=== PATIENT | female | born 1940 | race Caucasian/White ===

== ENCOUNTER 2017-01-16 09:37 | Inpatient (IN) | payer MEDICARE, OTHER ==
[~2017-01-16] VITALS: Ht 162.5 cm; Wt 61.0 kg
[2017-01-16] VITALS (7 sets, daily range): BP systolic 97–172; BP diastolic 54–98
--- NOTE | ~2017-01-16 | CON ---
[place], [place] REPORT OF CONSULTATION NAME: AMAYA ROSEN UNIT #: [id number] ROOM: 507 DOCTOR: SIMON PAT MD BIRTHDATE: [birth year] DOS: 01/16/2017 REASON FOR CONSULTATION: Atrial flutter. HISTORY OF PRESENT ILLNESS: The patient is a 76-year-old woman who was seen at her bedside today, 01/16/2017, for evaluation of atrial flutter. She has no previous history of heart disease, although she does have hypertension. She states that for the last month and a half, she has had episodic flutters in her chest. She states that her heart beats fast for several hours and then returns to normal again. She awakened at 5:00 this morning with similar symptoms and felt breathless and fatigued. She therefore came to the Emergency Room where she was found to be in atrial flutter with a heart rate response of 130. She was placed on a diltiazem drip and spontaneously converted to sinus rhythm. She was admitted to the hospital. We were asked to see her. The patient now feels well. PAST MEDICAL HISTORY: Includes: 1. Hypertension. 2. History of bilateral cataract resections. 3. Status post right breast lumpectomy. 4. No previous history of heart attack, stroke or peripheral vascular disease. 5. History of FOOD allergies with swelling of the face and mucous membranes. The patient is on allergy shots and has been told that she cannot take BETA BLOCKERS because of this. REVIEW OF SYSTEMS: The patient denies diplopia or loss of vision. She denies focal weakness. She denies lightheadedness or syncope. She denies orthopnea or PND. She denies fevers, chills, sweats or recent weight change. She has had palpitations as noted. She denies hemoptysis or hematemesis. She denies change in bowel or bladder habits and denies blood in her stools or urine. She denies heat or cold intolerance. She denies polydipsia or polyuria. She denies any peripheral edema. She denies any skin rashes. Remainder of the review of systems is negative except as noted above. FAMILY HISTORY: Sister of heart valve problems and probable heart failure. Her father at age 80 of dementia. Her mother at age 72 of a myocardial infarction. Many family members on her mother's side had heart disease. SOCIAL HISTORY: The patient is . She does not smoke or consume alcohol. MEDICATIONS: Prior to admission included cetirizine 10 mg daily, lisinopril 5 mg daily and ranitidine 150 mg b.i.d. ALLERGIES: She has no known drug allergies, but is told that she cannot take BETA BLOCKERS because of her allergy shots. PHYSICAL EXAMINATION: GENERAL: Reveals a well-nourished white female who is awake, alert and oriented. [place], [place] REPORT OF CONSULTATION NAME: AMAYA ROSEN UNIT #: [id number] ROOM: 507 DOCTOR: SIMON PAT MD BIRTHDATE: [birth year] VITAL SIGNS: Pulse is 74 and regular, blood pressure is 151/63. She is afebrile. She weighs 61 kg and has a body mass index of 23.1. HEENT: Normocephalic and atraumatic. Extraocular muscles are intact. Sclerae are clear. Pupils equal, round and react to light. The oral mucosa is moist. Tongue is midline. NECK: Supple. She has no jugular distention. Carotids are full. I heard no bruits. She had no neck or supraclavicular masses and no thyromegaly. LUNGS: Respirations are unlabored. Her chest is clear to auscultation and percussion. She had no presacral edema or chest wall tenderness. HEART: Had a regular rhythm. She had a fourth heart sound, but no third heart sound or murmurs. The PMI was not displaced. There was no precordial heave, lift or thrill. ABDOMEN: Soft and normally active without masses, organomegaly or bruits. EXTREMITIES: Showed no clubbing, cyanosis or edema. Peripheral pulses were easily palpated bilaterally. LABORATORY DATA: I did review her electrocardiograms. They showed atrial flutter with 2:1 block on admission. She then converted to sinus rhythm with poor precordial R-wave progression and a left anterior fascicular block. IMPRESSIONS: 1. Newly documented atrial flutter. The patient has had symptoms of this for at least 1-2 months. 2. History of hypertension. 3. History of FOOD allergies, for which she is on allergy shots. 4. CHADS-VASc score of 4 indicating a high risk for future embolic phenomena without anticoagulation. PLAN: We will review the echocardiogram when it is available. TSH has also been ordered and we will review that when it is available. We will place her on oral diltiazem to slow her heart rate if and when she goes back into atrial flutter or fibrillation. For now, I would withhold antiarrhythmic drugs. She does have a high risk for stroke; however, so we will start her on a direct oral anticoagulant (rivaroxaban) and observe her in the hospital. She probably could be discharged to home in the next 24 hours if she remains stable and tolerates her medications. [facility] and I thank the hospitalist physicians for asking our advice regarding this patient's care. [place], [place] REPORT OF CONSULTATION NAME: AMAYA ROSEN UNIT #: [id number] ROOM: 507 DOCTOR: SIMON PAT MD BIRTHDATE: [birth year] SIMON PAT MD CM:CONSTR:REPORT OF CONSULTATION 1616 01/16/17 1741 interface
[~2017-01-16 09:37] MED LIST: TRAMADOL HCL50 MG PO
[2017-01-16 10:07] LABS: BASO # 0.1 10*3/uL (0.0-0.1); BASO % 0.8 % (0.0-1.0); EOS # 0.2 10*3/uL (0.0-0.4); EOS % 2.9 % (1.0-4.0); HEMATOCRIT 43.1 % (37.0-47.0); HEMOGLOBIN 14.1 g/dl (12.0-16.0); LYMPH # 1.8 10*3/uL (1.3-4.4); LYMPH % 22.7 % (27.0-41.0); MEAN CELL VOLUME 95.8 fl (81.0-99.0); MEAN CORPUSCULAR HGB 31.3 pg (27.0-31.0); MEAN CORPUSCULAR HGB CONC 32.7 g/dl (33.0-37.0); MEAN PLATELET VOLUME 10.4 fl (9.6-12.3); MONO # 0.7 10*3/uL (0.1-1.0); MONO % 9.1 % (3.0-9.0); NEUT # 5.1 10*3/uL (2.3-7.9); NEUT % 64.2 % (47.0-73.0); PLATELET COUNT AUTOMATED 263 10*3/uL (130-400); RED CELL DISTRI WIDTH 12.5 % (0-14.5); WHITE BLOOD COUNT 7.9 10*3/uL (4.8-10.8)
[2017-01-16 10:17] LABS: ACT PARTIAL THROMBO TIME 25.9 SECONDS (20.8-31.5)
[2017-01-16 10:25] LABS: ALBUMIN 3.9 gm/dl (3.1-4.5); ALKALINE PHOSPHATASE 95 U/L (45-117); BUN 17 mg/dl (7-24); CHLORIDE 109 mmol/L (98-107); POTASSIUM 3.4 mmol/L (3.5-5.1); SGOT/AST 26 IU/L (3-35); SGPT/ALT 21 U/L (12-78); SODIUM 143 mmol/L (136-145); TOTAL PROTEIN 8.2 gm/dL (6.4-8.2)
[2017-01-16 10:32] LABS: TROPONIN I < 0.015 ng/ml (<0.045)
[2017-01-16 10:48] LABS: THYROID STIM HORMONE (HS) 0.453 uIU/ml (0.358-4.75)
[2017-01-16] MEDS ORDERED: LISINOPRIL5 MG PO (10:48)
[2017-01-16] MEDS ORDERED: ZANTAC 150150 MG PO (10:48)
[2017-01-16] MEDS ORDERED: ZYRTEC10 MG PO (10:48)
--- NOTE | 2017-01-16 10:48 | NUR ---
A 76, admitted to 5E, under the services of SAMRA Carrillo DO with a diagnosis of A FLUTTER. Chief complaint is RAPID HEART RATE- PALPITATIONS. Patient arrived via stretcher from ER. Monitor applied. Initial assessment completed. Vital signs taken and recorded. SAMRA CARRILLO DO notified of admission to the unit. Orders received. See assessment for past medical history, medications and allergies. Patient and/or family oriented to unit. [address] visitation policy reviewed. Clothing/patient valuable form completed. LASHAY GOMEZ
--- NOTE | 2017-01-16 10:49 | NUR ---
MEDS VERIFIED WITH [facility]
--- NOTE | 2017-01-16 11:20 | NUR ---
PT HR IN MID 60'S TO LOW 70'S. DR KHALIL NOTFIIED. ORDERS RECEIVED TO STOP CARDIZEM.
--- NOTE | 2017-01-16 13:03 | NUR ---
CONSULT CALLED TO DR CORMIER ANSWERING SERVICE
--- NOTE | 2017-01-16 13:06 | NUR ---
DR CORMIER RETURNS CALL AND ASKED THIS NURSE TO CALL DR PAT HE IS IN HOUSE TODAY, DR PAT NOTIFIED OF CONSULT.
--- NOTE | 2017-01-16 15:51 | NUR ---
DR PAT ON FLOOR AND SEES PT.
--- NOTE | 2017-01-16 15:52 | NUR ---
Patient resting quietly with no c/o discomfort. Respirations easy and regular. Vital signs stable. No overt distress. LASHAY GOMEZ R
[2017-01-17] VITALS: BP 142/84; BP 162/73
[2017-01-17 06:30] LABS: BASO # 0.1 10*3/uL (0.0-0.1); EOS # 0.3 10*3/uL (0.0-0.4); EOS % 4.7 % (1.0-4.0); HEMOGLOBIN 12.3 g/dl (12.0-16.0); LYMPH # 2.7 10*3/uL (1.3-4.4); LYMPH % 38.1 % (27.0-41.0); MEAN CELL VOLUME 95.7 fl (81.0-99.0); MEAN CORPUSCULAR HGB CONC 32.4 g/dl (33.0-37.0); MEAN PLATELET VOLUME 11.2 fl (9.6-12.3); MONO # 0.8 10*3/uL (0.1-1.0); MONO % 11.5 % (3.0-9.0); NEUT # 3.1 10*3/uL (2.3-7.9); NEUT % 44.3 % (47.0-73.0); PLATELET COUNT AUTOMATED 223 10*3/uL (130-400); RED BLOOD COUNT 3.97 10*6/uL (4.10-5.10); RED CELL DISTRI WIDTH 12.5 % (0-14.5)
[2017-01-17 06:43] LABS: INTERNATIONAL NORM RATIO 1.3 (2.0-3.5)
[2017-01-17 06:45] LABS: ALBUMIN 3.2 gm/dl (3.1-4.5); BUN 13 mg/dl (7-24); CHLORIDE 109 mmol/L (98-107); CHOLESTEROL 174 mg/dL (<200); CREATININE 0.84 mg/dL (0.55-1.02); PHOSPHOROUS 3.1 mg/dL (2.5-4.9); POTASSIUM 4.3 mmol/L (3.5-5.1); SGOT/AST 20 IU/L (3-35); SGPT/ALT 13 U/L (12-78); SODIUM 144 mmol/L (136-145); TRIGLYCERIDES 78 mg/dl (<150); VLDL CHOLESTEROL 16 mg/dL (6-40)
[2017-01-17 06:52] LABS: ALKALINE PHOSPHATASE 79 U/L (45-117); HDL CHOLESTEROL 69 mg/dl (40-60); LDL CHOLESTEROL 89 mg/dL (9-159); THYROID STIM HORMONE (HS) 0.831 uIU/ml (0.358-4.75); TOTAL PROTEIN 6.8 gm/dL (6.4-8.2)
[2017-01-17 07:15] LABS: VITAMIN D, 25-HYDROXY 38.1 ng/mL (30-100)
[2017-01-17 08:00] VITALS: BP 152/64
[2017-01-17 12:00] VITALS: BP 128/70
[2017-01-17] MEDS ORDERED: XARE20MG PO (12:11)
[2017-01-17] MEDS ORDERED: DILTIAZEM 24HR120 MG PO (12:11)
--- NOTE | 2017-01-17 13:02 | NUR ---
Discharge instructions reviewed with patient/family. Patient receptive and verbalizes understanding. Follow-up care arranged. Written instructions given to patient/family. ODALYS OLIVEIRA
== END 2017-01-17 13:02 | disposition home or self-care (01) | DRG 309 ==
LOC: ED 09:37 → EDHOLD 09:59 → 5E 10:02
PROVIDERS: Emergency Medicine; Hospitalist; ADMIT Internal Medicine
DX: I48.92 Unspecified atrial flutter (principal); D68.59 Other primary thrombophilia; E87.6 Hypokalemia; I10 Essential (primary) hypertension; Z98.42 Cataract extraction status, left eye; Z98.41 Cataract extraction status, right eye; Z82.49 Family history of ischemic heart disease and other diseases of the circulatory system; Z81.8 Family history of other mental and behavioral disorders; Z79.899 Other long term (current) drug therapy; Z88.8 Allergy status to other drugs, medicaments and biological substances

== ENCOUNTER → 2018-07-27 | Outpatient (CLI) | payer MEDICARE, OTHER ==
[~2018-07-27] MED LIST changes: +DILTIAZEM 24HR120 MG PO; +LISINOPRIL5 MG PO; +XARE20MG PO; +ZANTAC 150150 MG PO; +ZYRTEC10 MG PO
[2018-07-27 08:31] LABS: CREATININE 0.82 mg/dL (0.55-1.02)
== END | disposition home or self-care (01) ==
LOC: LAB 07:36
PROVIDERS: Surgery
DX: K59.00 Constipation, unspecified (principal)

== ENCOUNTER → 2018-11-10 | Outpatient (CLI) | payer MEDICARE, OTHER ==
[2018-11-10 09:12] LABS: BASO # 0.1 10*3/uL (0.0-0.1); BASO % 0.9 % (0.0-1.0); EOS # 0.3 10*3/uL (0.0-0.4); EOS % 4.4 % (1.0-4.0); HEMATOCRIT 41.1 % (37.0-47.0); LYMPH # 2.1 10*3/uL (1.3-4.4); LYMPH % 30.7 % (27.0-41.0); MEAN CELL VOLUME 99.5 fl (81.0-99.0); MEAN CORPUSCULAR HGB 31.5 pg (27.0-31.0); MEAN CORPUSCULAR HGB CONC 31.6 g/dl (33.0-37.0); MEAN PLATELET VOLUME 10.9 fl (9.6-12.3); MONO # 0.7 10*3/uL (0.1-1.0); MONO % 9.9 % (3.0-9.0); NEUT # 3.7 10*3/uL (2.3-7.9); NEUT % 53.7 % (47.0-73.0); PLATELET COUNT AUTOMATED 246 10*3/uL (130-400); RED BLOOD COUNT 4.13 10*6/uL (4.10-5.10); RED CELL DISTRI WIDTH 12.7 % (0-14.5); WHITE BLOOD COUNT 6.8 10*3/uL (4.8-10.8)
[2018-11-10 09:31] LABS: ALBUMIN 3.9 gm/dl (3.1-4.5); ALKALINE PHOSPHATASE 102 U/L (45-117); BUN 22 mg/dl (7-24); CHLORIDE 108 mmol/L (98-107); CHOLESTEROL 175 mg/dL (<200); CREATININE 0.79 mg/dL (0.55-1.02); FREE T4 1.21 ng/dl (0.76-1.46); HDL CHOLESTEROL 80 mg/dl (40-60); LDL CHOLESTEROL 87 mg/dL (9-159); POTASSIUM 4.3 mmol/L (3.5-5.1); SGOT/AST 19 IU/L (3-35); SGPT/ALT 18 U/L (12-78); SODIUM 141 mmol/L (136-145); TOTAL PROTEIN 7.7 gm/dL (6.4-8.2); TRIGLYCERIDES 42 mg/dl (<150); VLDL CHOLESTEROL 8 mg/dL (6-40)
[2018-11-10 09:37] LABS: THYROID STIM HORMONE (HS) 0.405 uIU/ml (0.358-4.75)
[2018-11-10 09:52] LABS: VITAMIN D, 25-HYDROXY 47.4 ng/mL (30-100)
== END | disposition home or self-care (01) ==
LOC: LAB 08:14
PROVIDERS: Internal Medicine
DX: I10 Essential (primary) hypertension (principal); E55.9 Vitamin D deficiency, unspecified; D52.9 Folate deficiency anemia, unspecified; D51.9 Vitamin B12 deficiency anemia, unspecified

== ENCOUNTER → 2019-03-02 | Day surgery (SDC) | payer MEDICARE, OTHER ==
[~2019-03-02] VITALS: Ht 162.5 cm; Wt 59.0 kg
[~2019-03-02] MED LIST changes: +FOLGARD TABLET1 EACH PO
[2019-03-02 09:42] VITALS: BP 127/84
[2019-03-02 10:55] VITALS: BP 128/46
[2019-03-02 11:10] VITALS: BP 159/58
[2019-03-02 11:25] VITALS: BP 159/57
== END | disposition home or self-care (01) ==
LOC: SDC 02-28 13:15
DX: K59.00 Constipation, unspecified (principal); I10 Essential (primary) hypertension; I48.91 Unspecified atrial fibrillation; K57.30 Diverticulosis of large intestine without perforation or abscess without bleeding; Z98.890 Other specified postprocedural states; Z79.899 Other long term (current) drug therapy

== ENCOUNTER → 2019-08-22 | Outpatient (CLI) | payer MEDICARE, OTHER | END | disposition home or self-care (01) | LOC: RAD 07:29 | DX: M81.0 Age-related osteoporosis without current pathological fracture (principal) ==

== ENCOUNTER → 2019-11-03 | Outpatient (CLI) | payer MEDICARE, OTHER ==
[2019-11-03 08:30] LABS: BASO % 0.6 % (0.0-1.0); EOS # 0.3 10*3/uL (0.0-0.4); EOS % 3.9 % (1.0-4.0); HEMATOCRIT 43.9 % (37.0-47.0); LYMPH # 2.8 10*3/uL (1.3-4.4); LYMPH % 39.6 % (27.0-41.0); MEAN CELL VOLUME 97.8 fl (81.0-99.0); MEAN CORPUSCULAR HGB CONC 31.7 g/dl (33.0-37.0); MEAN PLATELET VOLUME 11.2 fl (9.6-12.3); MONO # 0.8 10*3/uL (0.1-1.0); MONO % 10.8 % (3.0-9.0); NEUT # 3.1 10*3/uL (2.3-7.9); NEUT % 44.8 % (47.0-73.0); PLATELET COUNT AUTOMATED 224 10*3/uL (130-400); RED BLOOD COUNT 4.49 10*6/uL (4.10-5.10); RED CELL DISTRI WIDTH 12.6 % (0-14.5); WHITE BLOOD COUNT 6.9 10*3/uL (4.8-10.8)
[2019-11-03 08:54] LABS: ALBUMIN 3.8 gm/dl (3.1-4.5); BUN 17 mg/dl (7-24); CHLORIDE 109 mmol/L (98-107); POTASSIUM 4.4 mmol/L (3.5-5.1); SODIUM 141 mmol/L (136-145)
[2019-11-03 09:04] LABS: ALKALINE PHOSPHATASE 97 U/L (45-117); CHOLESTEROL 195 mg/dL (<200); CREATININE 0.73 mg/dL (0.55-1.02); FREE T4 1.11 ng/dl (0.76-1.46); HDL CHOLESTEROL 86 mg/dl (40-60); LDL CHOLESTEROL 98 mg/dL (9-159); SGOT/AST 20 IU/L (3-35); SGPT/ALT 22 U/L (12-78); THYROID STIM HORMONE (HS) 0.943 uIU/ml (0.358-4.75); TOTAL PROTEIN 8.1 gm/dL (6.4-8.2); TRIGLYCERIDES 54 mg/dl (<150); VLDL CHOLESTEROL 11 mg/dL (6-40)
[2019-11-03 09:26] LABS: VITAMIN D, 25-HYDROXY 56.5 ng/mL (30-100)
== END | disposition home or self-care (01) ==
LOC: LAB 07:08
PROVIDERS: Internal Medicine; ATTEND Internal Medicine Cardiovascular Disease
DX: E55.9 Vitamin D deficiency, unspecified (principal); R70.0 Elevated erythrocyte sedimentation rate; R79.82 Elevated C-reactive protein (CRP); R74.8 Abnormal levels of other serum enzymes; R79.89 Other specified abnormal findings of blood chemistry; M06.9 Rheumatoid arthritis, unspecified; R53.81 Other malaise; E78.5 Hyperlipidemia, unspecified

== ENCOUNTER → 2019-12-13 | Outpatient (CLI) | payer MEDICARE, OTHER | END | disposition home or self-care (01) | LOC: CARD 14:38 | PROVIDERS: ATTEND Internal Medicine | DX: R06.02 Shortness of breath (principal) ==

== ENCOUNTER → 2020-04-25 | Outpatient (CLI) | payer MEDICARE, OTHER ==
[2020-04-25 09:02] LABS: CHOLESTEROL 171 mg/dL (<200); TRIGLYCERIDES 65 mg/dl (<150); VLDL CHOLESTEROL 13 mg/dL (6-40)
[2020-04-25 09:05] LABS: HDL CHOLESTEROL 83 mg/dl (40-60); LDL CHOLESTEROL 75 mg/dL (9-159)
== END | disposition home or self-care (01) ==
LOC: LAB 07:57
PROVIDERS: ATTEND Internal Medicine Cardiovascular Disease
DX: E78.5 Hyperlipidemia, unspecified (principal)

== ENCOUNTER → 2020-05-10 | Outpatient (CLI) | payer MEDICARE, OTHER | END | disposition home or self-care (01) | LOC: US 09:16 | PROVIDERS: ATTEND Internal Medicine | DX: K40.90 Unilateral inguinal hernia, without obstruction or gangrene, not specified as recurrent (principal) ==

== ENCOUNTER → 2021-05-08 | Outpatient (CLI) | payer MEDICARE, OTHER ==
[2021-05-08 08:47] LABS: BASO # 0.1 10*3/uL (0.0-0.1); BASO % 0.7 % (0.0-1.0); EOS # 0.2 10*3/uL (0.0-0.4); EOS % 2.9 % (1.0-4.0); LYMPH # 2.3 10*3/uL (1.3-4.4); LYMPH % 33.1 % (27.0-41.0); MEAN CORPUSCULAR HGB 31.1 pg (27.0-31.0); MEAN CORPUSCULAR HGB CONC 32.4 g/dl (33.0-37.0); MEAN PLATELET VOLUME 10.8 fl (9.6-12.3); MONO # 0.8 10*3/uL (0.1-1.0); MONO % 11.9 % (3.0-9.0); NEUT # 3.5 10*3/uL (2.3-7.9); NEUT % 51.1 % (47.0-73.0); PLATELET COUNT AUTOMATED 246 10*3/uL (130-400); RED BLOOD COUNT 4.27 10*6/uL (4.10-5.10); RED CELL DISTRI WIDTH 12.3 % (0-14.5); WHITE BLOOD COUNT 6.9 10*3/uL (4.8-10.8)
[2021-05-08 09:08] LABS: BUN 19 mg/dl (7-24); CHLORIDE 110 mmol/L (98-107); POTASSIUM 3.7 mmol/L (3.5-5.1); SODIUM 140 mmol/L (136-145)
[2021-05-08 09:17] LABS: ALKALINE PHOSPHATASE 107 U/L (45-117); CHOLESTEROL 175 mg/dL (<200); CREATININE 0.72 mg/dL (0.55-1.02); LDL CHOLESTEROL 72 mg/dL (9-159); SGOT/AST 23 IU/L (3-35); SGPT/ALT 23 U/L (12-78); T3 UPTAKE 34 % (31-39); THYROID STIM HORMONE (HS) 0.748 uIU/ml (0.358-4.75); THYROXINE (T4) TOTAL 9.9 ug/dl (4.8-13.9); TOTAL PROTEIN 8.2 gm/dL (6.4-8.2); TRIGLYCERIDES 58 mg/dl (<150)
[2021-05-08 09:42] LABS: VITAMIN D, 25-HYDROXY 60.7 ng/mL (30-100)
== END | disposition home or self-care (01) ==
LOC: LAB 08:19
PROVIDERS: ATTEND Internal Medicine
DX: I10 Essential (primary) hypertension (principal); Z00.00 Encounter for general adult medical examination without abnormal findings; Z13.89 Encounter for screening for other disorder; D64.9 Anemia, unspecified; E55.9 Vitamin D deficiency, unspecified; I48.21 Permanent atrial fibrillation

== ENCOUNTER → 2022-01-01 | Outpatient (CLI) | payer MEDICARE, OTHER | END | disposition home or self-care (01) | LOC: CT 08:00 | PROVIDERS: ATTEND Internal Medicine | DX: R10.2 Pelvic and perineal pain (principal); R10.30 Lower abdominal pain, unspecified; M99.84 Other biomechanical lesions of sacral region ==

== ENCOUNTER → 2022-10-14 | Outpatient (CLI) | payer MEDICARE, OTHER ==
[2022-10-14 09:38] LABS: BASO # 0.1 10*3/uL (0.0-0.1); BASO % 1.2 % (0.0-1.0); EOS # 0.3 10*3/uL (0.0-0.4); EOS % 4.6 % (1.0-4.0); HEMATOCRIT 44.6 % (37.0-47.0); LYMPH % 29.3 % (27.0-41.0); MEAN CORPUSCULAR HGB 31.3 pg (27.0-31.0); MEAN CORPUSCULAR HGB CONC 32.3 g/dl (33.0-37.0); MONO # 0.7 10*3/uL (0.1-1.0); MONO % 10.1 % (3.0-9.0); NEUT # 3.7 10*3/uL (2.3-7.9); NEUT % 54.7 % (47.0-73.0); PLATELET COUNT AUTOMATED 226 10*3/uL (130-400); RED CELL DISTRI WIDTH 12.4 % (0-14.5); WHITE BLOOD COUNT 6.8 10*3/uL (4.8-10.8)
[2022-10-14 09:55] LABS: ACT PARTIAL THROMBO TIME 38.4 SECONDS (20.0-32.1); INTERNATIONAL NORM RATIO 1.2 (2.0-3.5)
[2022-10-14 10:00] LABS: ALKALINE PHOSPHATASE 105 U/L (46-116); BUN 12 mg/dl (9-23); CHLORIDE 108 mmol/L (98-107); POTASSIUM 4.2 mmol/L (3.4-5.1); SGPT/ALT 12 U/L (10-49); TOTAL PROTEIN 7.8 gm/dL (6.0-8.0)
[2022-10-14 10:03] LABS: FREE T4 1.15 ng/dl (0.89-1.76)
[2022-10-14 10:22] LABS: VITAMIN D, 25-HYDROXY 75.6 ng/mL (30-100)
== END | disposition home or self-care (01) ==
LOC: LAB 08:30
PROVIDERS: Internal Medicine; ATTEND Surgery
DX: Z01.818 Encounter for other preprocedural examination (principal); I10 Essential (primary) hypertension; M81.0 Age-related osteoporosis without current pathological fracture; Z13.0 Encounter for screening for diseases of the blood and blood-forming organs and certain disorders involving the immune mechanism; Z13.1 Encounter for screening for diabetes mellitus; Z13.21 Encounter for screening for nutritional disorder; Z13.220 Encounter for screening for lipoid disorders; Z13.228 Encounter for screening for other metabolic disorders; Z13.29 Encounter for screening for other suspected endocrine disorder; Z13.6 Encounter for screening for cardiovascular disorders; I49.3 Ventricular premature depolarization; Z13.89 Encounter for screening for other disorder; Z13.9 Encounter for screening, unspecified; J44.9 Chronic obstructive pulmonary disease, unspecified; R10.9 Unspecified abdominal pain

== ENCOUNTER → 2022-10-28 | Outpatient (CLI) | payer MEDICARE, OTHER ==
[~2022-10-28] MED LIST changes: +NEXIUM40 MG PO
== END | disposition home or self-care (01) ==
LOC: CARD 02:36
PROVIDERS: ATTEND Internal Medicine Cardiovascular Disease
DX: I49.3 Ventricular premature depolarization (principal); R94.31 Abnormal electrocardiogram [ECG] [EKG]; I25.2 Old myocardial infarction

== ENCOUNTER → 2022-12-19 | Outpatient (CLI) | payer MEDICARE, OTHER ==
[2022-12-19 09:21] LABS: BASO # 0.1 10*3/uL (0.0-0.1); BASO % 1.1 % (0.0-1.0); EOS # 0.3 10*3/uL (0.0-0.4); EOS % 4.6 % (1.0-4.0); HEMATOCRIT 40.6 % (37.0-47.0); LYMPH # 1.7 10*3/uL (1.3-4.4); LYMPH % 26.7 % (27.0-41.0); MEAN CELL VOLUME 99.3 fl (81.0-99.0); MEAN CORPUSCULAR HGB CONC 32.3 g/dl (33.0-37.0); MONO # 0.8 10*3/uL (0.1-1.0); MONO % 12.7 % (3.0-9.0); NEUT # 3.5 10*3/uL (2.3-7.9); NEUT % 54.7 % (47.0-73.0); PLATELET COUNT AUTOMATED 214 10*3/uL (130-400); RED BLOOD COUNT 4.09 10*6/uL (4.10-5.10); RED CELL DISTRI WIDTH 12.5 % (0-14.5); WHITE BLOOD COUNT 6.4 10*3/uL (4.8-10.8)
[2022-12-19 09:39] LABS: ACT PARTIAL THROMBO TIME 39.1 SECONDS (20.0-32.1); INTERNATIONAL NORM RATIO 1.3 (2.0-3.5)
[2022-12-19 09:46] LABS: ALKALINE PHOSPHATASE 112 U/L (46-116); BUN 16 mg/dl (9-23); CHLORIDE 107 mmol/L (98-107); POTASSIUM 3.9 mmol/L (3.4-5.1); SGPT/ALT 12 U/L (5-49); TOTAL PROTEIN 7.3 gm/dL (6.0-8.0)
== END | disposition home or self-care (01) ==
LOC: LAB 08:25
PROVIDERS: ATTEND Surgery
DX: Z01.818 Encounter for other preprocedural examination (principal); J43.9 Emphysema, unspecified

== ENCOUNTER 2023-05-29 10:40 | Emergency (ER) | payer MEDICARE, OTHER ==
[~2023-05-29] VITALS: Ht 160 cm; Wt 50.8 kg
[~2023-05-29 10:40] MED LIST changes: +ANUSOL HC,ANUCO25 MG PO
[2023-05-29] MEDS ORDERED: PROCTOSOL-HC28.35 GM R (10:57)
[2023-05-29] MEDS ORDERED: MIRALAX119 GM PO (10:59)
[2023-05-29] MEDS ORDERED: COLACE100 MG PO (10:59)
[2023-05-29] MEDS ORDERED: FLECAINIDE ACET50 M1 PO (11:00)
[2023-05-29] MEDS ORDERED: PEPCID20 MG PO (11:00)
[2023-05-29 11:25] LABS: BASO # 0.1 10*3/uL (0.0-0.1); BASO % 0.7 % (0.0-1.0); EOS # 0.1 10*3/uL (0.0-0.4); EOS % 1.2 % (1.0-4.0); HEMATOCRIT 43.8 % (37.0-47.0); LYMPH # 1.6 10*3/uL (1.3-4.4); LYMPH % 18.8 % (27.0-41.0); MEAN CELL VOLUME 97.1 fl (81.0-99.0); MEAN CORPUSCULAR HGB 31.7 pg (27.0-31.0); MEAN CORPUSCULAR HGB CONC 32.6 g/dl (33.0-37.0); MEAN PLATELET VOLUME 10.1 fl (9.6-12.3); MONO # 0.8 10*3/uL (0.1-1.0); MONO % 9.1 % (3.0-9.0); NEUT # 5.9 10*3/uL (2.3-7.9); PLATELET COUNT AUTOMATED 251 10*3/uL (130-400); RED BLOOD COUNT 4.51 10*6/uL (4.10-5.10); RED CELL DISTRI WIDTH 12.3 % (0-14.5); WHITE BLOOD COUNT 8.5 10*3/uL (4.8-10.8)
[2023-05-29 11:38] LABS: ACT PARTIAL THROMBO TIME 35.3 SECONDS (20.0-32.1)
[2023-05-29] MEDS ORDERED: IOHEXOL 300 MG/ML 100 ML VIAL IV ONE (11:40)
[2023-05-29 12:00] LABS: ALKALINE PHOSPHATASE 112 U/L (46-116); BUN 18 mg/dl (9-23); CHLORIDE 107 mmol/L (98-107); LIPASE 52 U/L (12-53); POTASSIUM 3.9 mmol/L (3.4-5.1); SGPT/ALT 14 U/L (5-49); TOTAL PROTEIN 8.1 gm/dL (6.0-8.0)
== END 2023-05-29 14:16 | disposition home or self-care (01) ==
LOC: ED 10:40
PROVIDERS: Nurse Practitioner Family
DX: K64.9 Unspecified hemorrhoids (principal); K59.00 Constipation, unspecified; I10 Essential (primary) hypertension; I48.91 Unspecified atrial fibrillation; Z98.890 Other specified postprocedural states; Z90.11 Acquired absence of right breast and nipple

== ENCOUNTER 2023-08-01 10:21 | Emergency (ER) | payer MEDICARE, OTHER ==
[~2023-08-01] VITALS: Ht 160 cm; Wt 49.9 kg
[~2023-08-01 10:21] MED LIST changes: +COLACE100 MG PO; +FLECAINIDE ACET50 M1 PO; +MIRALAX119 GM PO; +PEPCID20 MG PO; +PROCTOSOL-HC28.35 GM R
== END 2023-08-01 12:56 | disposition home or self-care (01) ==
LOC: ED 10:21
DX: S46.911A Strain of unspecified muscle, fascia and tendon at shoulder and upper arm level, right arm, initial encounter (principal); I10 Essential (primary) hypertension; I48.91 Unspecified atrial fibrillation; Z90.11 Acquired absence of right breast and nipple; Z98.890 Other specified postprocedural states; W22.8XXA Striking against or struck by other objects, initial encounter; Y93.89 Activity, other specified; Y92.009 Unspecified place in unspecified non-institutional (private) residence as the place of occurrence of the external cause; Y99.8 Other external cause status

== ENCOUNTER → 2023-10-13 | Outpatient (CLI) | payer MEDICARE, OTHER | END | disposition home or self-care (01) | LOC: CT 14:00 | PROVIDERS: ATTEND Internal Medicine | DX: R07.9 Chest pain, unspecified (principal); E01.0 Iodine-deficiency related diffuse (endemic) goiter; I51.7 Cardiomegaly; M40.294 Other kyphosis, thoracic region; I25.10 Atherosclerotic heart disease of native coronary artery without angina pectoris ==

== ENCOUNTER → 2023-10-29 | Outpatient (CLI) | payer MEDICARE, OTHER | END | disposition home or self-care (01) | LOC: US 01:46 | PROVIDERS: ATTEND Internal Medicine | DX: E04.2 Nontoxic multinodular goiter (principal) ==

== ENCOUNTER → 2024-01-06 | Outpatient (CLI) | payer MEDICARE, OTHER ==
[2024-01-06 08:49] LABS: BASO % 0.6 % (0.0-1.0); EOS # 0.3 10*3/uL (0.0-0.4); EOS % 3.8 % (1.0-4.0); HEMATOCRIT 42.5 % (37.0-47.0); MEAN CELL VOLUME 100.7 fl (81.0-99.0); MEAN CORPUSCULAR HGB CONC 31.8 g/dl (33.0-37.0); MEAN PLATELET VOLUME 11.3 fl (9.6-12.3); MONO # 0.7 10*3/uL (0.1-1.0); MONO % 10.2 % (3.0-9.0); NEUT # 4.1 10*3/uL (2.3-7.9); NEUT % 56.9 % (47.0-73.0); PLATELET COUNT AUTOMATED 181 10*3/uL (130-400); RED BLOOD COUNT 4.22 10*6/uL (4.10-5.10); RED CELL DISTRI WIDTH 12.6 % (0-14.5); WHITE BLOOD COUNT 7.2 10*3/uL (4.8-10.8)
[2024-01-06 09:23] LABS: ALKALINE PHOSPHATASE 117 U/L (46-116); BUN 15 mg/dl (9-23); CHLORIDE 109 mmol/L (98-107); CHOLESTEROL 158 mg/dL (<200); LDL CHOLESTEROL 66 mg/dL (9-159); POTASSIUM 3.9 mmol/L (3.4-5.1); SGPT/ALT 33 U/L (5-49); TOTAL PROTEIN 7.7 gm/dL (6.0-8.0); TRIGLYCERIDES 54 mg/dl (<150); VITAMIN D, 25-HYDROXY 82.6 ng/mL (30-100)
== END | disposition home or self-care (01) ==
LOC: LAB 07:25
PROVIDERS: ATTEND Internal Medicine
DX: I10 Essential (primary) hypertension (principal); R53.83 Other fatigue; E55.9 Vitamin D deficiency, unspecified; E53.9 Vitamin B deficiency, unspecified

== ENCOUNTER → 2024-01-18 | Outpatient (CLI) | payer MEDICARE, OTHER ==
[2024-01-19 06:05] LABS: HBsAG SCREEN Negative (Negative); HCV Ab Non Reactive (Non Reactive); HEP B CORE Ab, IgM Negative (Negative)
== END | disposition home or self-care (01) ==
LOC: LAB 02:19 → US 08:00 → LAB 08:00
PROVIDERS: ATTEND Internal Medicine
DX: R94.5 Abnormal results of liver function studies (principal)

== ENCOUNTER → 2024-06-16 | Outpatient (CLI) | payer MEDICARE, OTHER ==
[2024-06-16 07:27] LABS: BASO % 0.6 % (0.0-1.0); EOS # 0.2 10*3/uL (0.0-0.4); EOS % 3.3 % (1.0-4.0); HEMATOCRIT 42.4 % (37.0-47.0); MEAN CELL VOLUME 98.1 fl (81.0-99.0); MEAN CORPUSCULAR HGB 32.4 pg (27.0-31.0); MEAN PLATELET VOLUME 10.1 fl (9.6-12.3); MONO # 0.7 10*3/uL (0.1-1.0); MONO % 10.6 % (3.0-9.0); NEUT # 3.4 10*3/uL (2.3-7.9); NEUT % 51.1 % (47.0-73.0); PLATELET COUNT AUTOMATED 218 10*3/uL (130-400); RED BLOOD COUNT 4.32 10*6/uL (4.10-5.10); RED CELL DISTRI WIDTH 12.4 % (0-14.5); WHITE BLOOD COUNT 6.6 10*3/uL (4.8-10.8)
[2024-06-16 08:03] LABS: ALKALINE PHOSPHATASE 107 U/L (46-116); BUN 14 mg/dl (9-23); CHLORIDE 106 mmol/L (98-107); CHOLESTEROL 170 mg/dL (<200); FREE T4 1.13 ng/dl (0.89-1.76); LDL CHOLESTEROL 72 mg/dL (9-159); POTASSIUM 3.8 mmol/L (3.4-5.1); SGPT/ALT 14 U/L (5-49); TOTAL PROTEIN 7.6 gm/dL (6.0-8.0); TRIGLYCERIDES 58 mg/dl (<150)
== END | disposition home or self-care (01) ==
LOC: LAB 02:28
PROVIDERS: ATTEND Internal Medicine
DX: E55.9 Vitamin D deficiency, unspecified (principal); E78.5 Hyperlipidemia, unspecified; E04.9 Nontoxic goiter, unspecified

== ENCOUNTER → 2024-11-30 | Outpatient (CLI) | payer MEDICARE, OTHER ==
[2024-11-30 08:37] LABS: BUN 23.0 mg/dl (9-23); FREE T4 1.18 ng/dl (0.89-1.76); LDL CHOLESTEROL 76.0 mg/dL (9-159); SGPT/ALT 15.0 U/L (5-49); VITAMIN D, 25-HYDROXY 84.5 ng/mL (30-100)
== END | disposition home or self-care (01) ==
LOC: LAB 07:38
PROVIDERS: ATTEND Internal Medicine
DX: E78.5 Hyperlipidemia, unspecified (principal); E55.9 Vitamin D deficiency, unspecified; E04.9 Nontoxic goiter, unspecified; R63.4 Abnormal weight loss

== ENCOUNTER → 2024-12-01 | Outpatient (CLI) | payer MEDICARE, OTHER | END | disposition home or self-care (01) | LOC: US 00:23 | PROVIDERS: ATTEND Internal Medicine | DX: E04.2 Nontoxic multinodular goiter (principal) ==